=== PATIENT | male | born 1955 | race Caucasian/White ===

== ENCOUNTER → 2019-09-17 | Day surgery (SDC) | payer BC, OTHER ==
[2019-09-13 10:50] LABS: ANION GAP 15.5 mmol/L (8-16); CALCIUM 10.2 mg/dL (8.4-10.2); CREATININE, SERUM 1.48 mg/dL (0.72-1.25); POTASSIUM 4.5 mmol/L (3.5-5.1)
--- NOTE | 2019-09-13 11:20 | Diagnostic Imaging Report ---
EXAMINATION: CHEST 2 VIEWS INDICATION: ^[id number] ^1020 ^PRE-OP COMPARISON: None FINDINGS: PA and lateral views TUBES and LINES: None. LUNGS: Lungs are well inflated. Mild patchy areas of reticular opacities in both lung bases. No lobar consolidations. PLEURA: No pleural effusion or pneumothorax. HEART AND MEDIASTINUM: The cardiomediastinal silhouette is unremarkable. BONES AND SOFT TISSUES: No acute osseous lesion. Soft tissues are unremarkable. UPPER ABDOMEN: No free air under the diaphragm. IMPRESSION: No acute thoracic abnormality. Nonspecific reticular opacities in both lung bases may reflect areas of focal atelectasis. Signed by: Dr. Suzan Comer M.D. on 09/13/2019 11:17 AM
[~2019-09-17] MED LIST: ADVAIR 250-501 EACH; ALLOPURINOL300 MG; BAYER WOMEN'S1 EACH; CEFAZOLIN SOD 1 GM/NS 50ML 50 ML IV ONE; FENTANYL CITRATE/PF 100MCG/2 ML INJ ONE; GEMFIBROZIL600 MG PO; GLIMEPIRIDE2 MG PO; GLUCOPHAGE500 MG PO; GLYCOPYRROLATE INJ 0.2 MG/ML VIAL ONE; INDOMETHACIN50 MG; LIDOCAINE 1% W/EPINEPHRINE 20 ML VIAL ONE; LIDOCAINE HCL 2% LOCAL INJ 5 ML SDV VIAL INJ ONE; LISINOPRIL10 MG; LISINOPRIL10 MG PO; METOPROLOL TART50 MG PO; MIDAZOLAM HCL 2 MG/2 ML VIAL ONE; MORPHINE SULFATE INJ 10 MG/ML ONE; MUPIROCIN 2% OINT 22 GM TUBE ONE; NEOSTIGMINE 1 MG/ML 10ML VIAL ONE; NIFEDIPINE ER30 M1 PO; OMEGA 3 1,0001 EACH; ONE DAILY1 EACH; PROPOFOL IV EMULSION 10 MG/ML 20 ML VIAL ONE; ROCURONIUM BROMIDE 10 MG/ML 5ML VIAL IV ONE; SEVOFLURANE INHAL SOLN 250 ML PEN BTL ONE; ZETIA10 MG
[2019-09-17 11:00] VITALS: BP 131/74
--- NOTE | 2019-09-17 11:01 | Operative Report ---
DATE OF PROCEDURE: 09/17/2019 SURGEON: Sarabjit Quintero MD PREOPERATIVE DIAGNOSIS: Lipoma, right shoulder subfascial, 15 cm2. POSTOPERATIVE DIAGNOSIS: Lipoma, right shoulder subfascial, 15 cm2. PROCEDURE: Excision of subfascial lipoma, 15 cm2. ANESTHESIA: General. HISTORY: The patient is a 64-year-old male, who has a 15 cm lipoma located on the posterior aspect of the right shoulder. CAT scan reveals that the lipoma is subfascial and has intramuscular extension. The risks, benefits, and alternatives of treatment were discussed with the patient and he is prepared to undergo the procedure as outlined. PROCEDURE IN DETAIL: The patient was marked preoperatively in the holding area. He was brought to the operating theater. After the induction of adequate general anesthesia, he was then prepped and draped in the prone position. A time-out was performed. An incision was marked out in direction of the relaxed skin tension lines directly over the center of the mass. The incision was then infiltrated with 1% Xylocaine with epinephrine. After waiting an appropriate amount of time for maximum vasoconstrictive effect, the incision was made through the skin and subcutaneous tissues. Bleeding was controlled using electrocautery. The incision was deepened using the electrocautery down to the subfascial plane. The lipoma was identified and the skin and subcutaneous tissues were then elevated off the lipoma in all directions, allowing it to be well visualized. It was then removed from its muscular attachments from cephalad to caudal using electrocautery to maintain hemostasis. The lipoma was then removed in its entirety and sent for permanent pathologic examination. The wound cavity was irrigated with bacteriostatic saline and hemostasis was checked and made absolute once again with electrocautery. Because of the size of the cavity and its depth, a 7-[place] drain was then placed and secured to the skin with 3-0 nylon suture. At this point, the skin was closed in layers. A 4-0 Vicryl was used in an interrupted fashion to approximate the deep subcutaneous tissue and 4-0 nylon was then used in an interrupted horizontal mattress fashion to approximate the superficial tissues. Bactroban ointment, Xeroform gauze, and a sterile dressing are then applied. The BRAD drain was placed on suction and it was noted to hold suction well. The estimated blood loss of procedure was approximately 15 to 25 mL. He was brought to the recovery room in satisfactory condition and then discharged with a postoperative instruction sheet as well as a followup appointment. MD CECILIA Scott/CANDACE /[id number]
== END | disposition home or self-care (01) ==
LOC: OR 06:22
PROVIDERS: ATTEND Plastic Surgery
DX: D17.9 Benign lipomatous neoplasm, unspecified (principal); G47.33 Obstructive sleep apnea (adult) (pediatric); E78.5 Hyperlipidemia, unspecified; E11.22 Type 2 diabetes mellitus with diabetic chronic kidney disease; I12.9 Hypertensive chronic kidney disease with stage 1 through stage 4 chronic kidney disease, or unspecified chronic kidney disease; N18.9 Chronic kidney disease, unspecified; M54.9 Dorsalgia, unspecified; M54.2 Cervicalgia; F17.210 Nicotine dependence, cigarettes, uncomplicated; Z01.810 Encounter for preprocedural cardiovascular examination; Z01.812 Encounter for preprocedural laboratory examination; Z01.818 Encounter for other preprocedural examination; Z11.59 Encounter for screening for other viral diseases; Z79.84 Long term (current) use of oral hypoglycemic drugs
CPT/HCPCS: 23073; 36415 ×2; 71046; 80048; 82948; 88304; 93005; J0690; J2001; J2250; J2270; J2704; J2710; J3010; U0002